=== PATIENT | male | born 1970 | race Caucasian/White ===

== ENCOUNTER 2019-05-24 11:10 | Emergency (ER) | payer BC ==
[~2019-05-24] VITALS: Ht 172.7 cm; Wt 69.0 kg
[2019-05-24 11:12] VITALS: BP 140/88
[2019-05-24] MEDS ORDERED: LIDOCAINE-MPF 1%, 5ML ONE (11:28)
[2019-05-24] MEDS ORDERED: DIPH,PERTUSS(ACELL),TET VAC/PF 0.5 ML IM-VACC ONE (12:00)
[2019-05-24] MEDS ORDERED: NEOSPORIN OINT. PKT 1 PACKET ONE (12:27)
== END 2019-05-24 12:47 | disposition home or self-care (01) ==
LOC: ED 12:41
DX: S61.215A Laceration without foreign body of left ring finger without damage to nail, initial encounter (principal); W23.0XXA Caught, crushed, jammed, or pinched between moving objects, initial encounter; Y93.89 Activity, other specified; Y92.511 Restaurant or cafe as the place of occurrence of the external cause; Y99.8 Other external cause status
CPT/HCPCS: 12041; 90471; 90715

== ENCOUNTER → 2020-06-08 | Outpatient (CLI) | payer BC, OTHER | END | disposition home or self-care (01) | LOC: RAD 15:09 | PROVIDERS: ATTEND Nurse Practitioner Family | DX: R93.89 Abnormal findings on diagnostic imaging of other specified body structures (principal); R07.0 Pain in throat; R00.2 Palpitations | CPT/HCPCS: 71250; 76536 ==